=== PATIENT | female | born 1985 | race Caucasian/White ===

== ENCOUNTER 2025-04-01 15:52 | Emergency (ER) | payer BC, SELFPAY ==
[2025-04-01] VITALS (8 sets, daily range): BP systolic 96–182; BP diastolic 76–110; BMI 22.5
--- NOTE | 2025-04-01 16:23 | ED.GENMED ---
History of Present Illness
General
Chief Complaint: Anxiety
Source: patient and family
Time Seen by Provider: 04/01/25 16:07
History of Present Illness
History of Present Illness:
39-year-old female with no reported past medical history presenting to the emergency department for evaluation of what she states is anxiety over the last month plus, today symptoms seem much worse and persistent, unable to get the sensation of
anxiousness under control which is why she presented to the emergency department. Patient states that she has been pacing all day and tremulous. She was seen by her primary care doctor for this about 3 weeks ago and was offered medication for the
anxiety but she had refused at that time stating she felt she did not need anything medication rodriguez. She denies any SI, HI, hallucinations. No history of similar. When asked about alcohol history patient did seem evasive with this questioning,
family member present states patient does drink a little bit more than what she let onto (patient admitted to drinking 2 times a week but notes she does drink heavily when she does drink alcohol). Patient states she had at least 12 beers yesterday
while watching the football games. She does note that her anxiety symptoms seem to be worse after drinking. She does admit to trying to self medicate with alcohol. She is also denying any fevers, chills, rigors, headache, visual disturbances,
focal weakness or numbness, chest pain, SOB, nausea/vomiting or any other concerns.
Past History
Past History
ED Past Medical History: None
ED Past Surgical History:
Social History
Tobacco: Non-smoker
Alcohol: Binge drinker
Drug: None
Personal:
Living: with family
Review of Systems
Review of Systems
All Other Systems: ROS reviewed and negative except as documented in HPI and ROS
Phy Exam
Physical Exam
Physical Exam:
GENERAL: Alert , unable to sit still, pacing
HEAD: Normocephalic atraumatic
EYE: clear conjunctiva
NECK: Supple
ENT: o/p clr, mmm.
CARDIAC: Tachycardic rate, regular rhythm
LUNGS: Clear breath sounds bilaterally, no acute respiratory distress, no wheezes/rales/rhonchi
ABDOMEN: Soft, without focal tenderness, no r/g, no cvat
NEUROLOGICAL: Alert and oriented, tremors most pronounced with arms extended
SKIN: Warm and dry, skin intact.
MUSCULOSKELETAL: No edema, well perfused.
PSYCH: Anxious affect
Scores
Heart Failure Risk
Heart Failure Risk Score: Not Applicable
Heart Score for Chest Pain Patients
STEMI patient?: Not applicable
Withdrawal Assessment of Alcohol
Withdrawal Assessment Completed?: Yes
Nausea and Vomiting: No nausea and no vomiting
Tactile Disturbances: Very mild itching, pins and needles, burning or numbness
Tremor: Moderate, with patient's arms extended
Auditory Disturbances: Not present
Paroxysmal Sweats: No sweat visible
Visual Disturbances: Not present
Anxiety: Moderately anxious, or guarded, so anxiety is inferred
Headache, Fullness in Head: Not present
Agitation: Moderately fidgety and restless
Orientation and clouding of sensorium: Oriented and can do serial additions
Total CIWA Score: 13
Alcohol Withdrawal Medication Recommendation: Equal to MSAS Score 5-7. Lorazepam 1mg IV or PO NOW & re-assess q2hrs
Course
Orders/Labs/Results
Orders:
Orders
04/01/25 15:57
Crisis Consult Urgent
Reason for Consult: anxiety
04/01/25 16:19
Midazolam HCl [Versed] 5 mg IV NOW STA
04/01/25 16:20
Test Result ONCE
04/01/25 16:21
Electrocardiogram (*1) Urgent
Reason for Study: Bradycardia / Tachycardia
EKG- Treatment ONCE
04/01/25 16:31
Alcohol Urgent
Complete Blood Count/With Diff Urgent
Comprehensive Metabolic Panel Urgent
HCG, Serum Qualitative Screen Urgent
TSH Reflex To Free T4 Urgent
diazePAM [Valium Injection] 5 mg IV NOW STA
04/01/25 16:32
diazePAM [Valium Injection] 10 mg IV NOW STA
04/01/25 16:54
Midazolam HCl [Versed] 5 mg IV NOW STA
Abnormal Lab Results
04/01/25
16:31
RBC 4.05 L 10^6/uL
(4.20-5.40)
Hct 36.3 L %
(37.0-47.0)
Absolute Neuts (auto) 6.6 H 10^3/uL
(1.4-6.5)
Absolute Lymphs (auto) 1.0 L 10^3/uL
(1.2-3.4)
Neutrophils % 79.8 H %
(42.2-75.2)
Lymphocytes % 12.5 L %
(20.5-51.1)
Sodium 127 L mmol/L
(135-145)
Chloride 91 L mmol/L
(98-107)
Carbon Dioxide 17 L mmol/L
(22-30)
BUN 6 L mg/dl
(7-17)
Creatinine 0.5 L mg/dL
(0.6-1.0)
Total Bilirubin 1.5 H mg/dl
(0.2-1.3)
AST 214 H U/L
(14-36)
ALT 130 H U/L
(0-35)
Albumin 5.4 H g/dl
(3.5-5.0)
04/01/25 16:31
04/01/25 16:31
Vital Signs
Initial and Last Documented VS:
Initial Vital Signs
Temp Pulse Resp BP Pulse Ox
97.2 F 148 18 182/110 97
04/01/25 15:54 04/01/25 15:54 04/01/25 15:54 04/01/25 15:54 04/01/25 15:54
Last Documented Vital Signs
Temp Pulse Resp BP Pulse Ox
97.2 F 88 17 120/88 98
04/01/25 15:54 04/01/25 20:00 04/01/25 20:00 04/01/25 20:00 04/01/25 19:15
MDM/Problems Addressed
Differential Diagnosis Includes:
ETOH abuse/withdrawal
Dehydration
Electrolyte Imbalance
Anxiety/Panic Disorder
Cardiac Arrhythmia
Thyroid Disorder
MDM/Problems Addressed:
39-year-old female presenting to the emergency department for evaluation of what she reports is anxiety. Throughout the encounter patient seemed to be downplaying her alcohol use noting that she will drink twice a week but stating that she will
often drink to counteract her anxiety but usually feels worse after drinking alcohol. Yesterday had 12+ beers and symptoms started upon awakening this morning. I do have a high degree of suspicion for alcohol abuse/withdrawal as her presenting
complication. There could and is likely a component of anxiety/panic disorder playing a role as well. I did offer patient [facility] consultation however she initially declines this. A crisis consultation was ordered in triage however given patient
is currently not medically stable enough to be dispositioned to crisis will keep patient in the ER and work her up for acute alcohol withdrawal with labs and treat with 5 mg Versed IV. Patient CIWA score of 13 and M panchito score of 5-7.
*Pulse Oximetry
SaO2: 97
Oxygen Mode of Delivery: Room air
Patient hypoxic: no
*It Sales Executive Interpretation
Rate: tachycardiac
Heart Rate: 137
Rhythm: sinus
*Critical Care Note
Total Time (30-74mins, 75-104mins- exclusive of procedures): 30
comment:
Critical care statement: A total of 30 minutes of critical care time was provided for this patient. This includes management of unstable vital signs, evaluation of the patient at bedside, reviewing the patient's pertinent medical records, discussion
with consultants, review of old EKGs and review of pertinent medical records. This time with separate from time utilized to perform the aforementioned documented procedures
Comment
Comment:
Initially I did order Versed 5 mg IV and change this to Valium 5 mg IV, nursing staff had already drawn up the Versed and provided this. After speaking with attending about case we decided to give 10mg valium IV. Nursing then saw that I have
changed the 5 mg of the Valium to 10 mg but because the order the first that was already processed requested that an additional 5 mg reordered, they had verbalized that they wanted to give an additional 5 of Versed, I had heard 5 of Valium and
stated it was okay to give the additional 5 mg. Patient received an additional 5 mg of Versed instead of the Valium making the patient having received a total of 10 mg of Versed. Patient was hooked up to the quality assurance monitor body and continuously
observed, maintaining her oxygen saturations without any problems. She does note feeling much less anxious following these medications. Patient will be observed in the ER for an extended period of time to ensure no sedating effects from the
medications given.
Patient Management
Social determinants of health affecting care: Living situation and Strong social support
Escalation/DeEscalation of care consider admission/obs:
After a few hours patient was more open to speaking with [facility]. She did not wish to go to inpatient facility but was amenable to outpatient based resources. Patient was observed continuously, no evidence for hypoxia, remained awake alert and
oriented x 3. Her vital signs have all significantly improved and she felt she wanted to be discharged home and would follow-up with her primary care provider as well as the outpatient resources provided to her. I did give the patient a short-term
course of Ativan to be used as needed for alcohol withdrawal. We discussed avoidance of alcohol. Patient and both expressed understanding and are aware of return precautions.
ED Attending Note
-
Portions of this chart may have been created with voice recognition software.� Occasional wrong word or��sound alike� substitutions may have occurred due to the inherent limitations of voice recognition software.
Discharge Plan
Departure
Patient Disposition: Home (Routine Discharge)
Date of Disposition: 04/01/25
Time of Disposition: 20:08
Patient with high blood pressure during this ER visit?: No
Discharge Problem:
Alcohol abuse with withdrawal
Instructions: Alcohol use disorder - ED (DC)
Prescriptions:
New
lorazepam [Ativan] 1 mg tablet
1 mg PO BID PRN (Reason: alcohol withdrawal) Qty: 6 0RF
Referrals:
Tom Wei CRNP [Family Provider, General]
Interventions
Interventions:
*Risk Screen - Suicide Last Done: 04/01/25 15:54
*General Assessment Last Done: 04/01/25 15:54
*Neglect/Abuse Screening Last Done: 04/01/25 15:54
*ED- Fall Risk Assessment Last Done: 04/01/25 16:03
*ED COVID-19 Vaccine History Last Done: 04/01/25 16:03
*Nursing Disposition Last Done: 04/01/25 20:23
ED-Psychological Assessment Last Done: 04/01/25 16:03
Discharge Date and Time
Discharge Date/Time: 04/01/25 20:24
Print Language: BERMUDIAN
[2025-04-01] MEDS: VERSED 5 MG IV ×2 (16:40→16:57)
[2025-04-01 16:51] LABS: Hematocrit 36.3 % (37.0-47.0); Hemoglobin 12.5 g/dL (12.0-16.0); Mean Corp Hgb Conc. 34.4 g/dL (33.0-37.0); Mean Corpuscular Volume 89.6 fL (81.0-99.0); Nucleated Red Blood Cells % 0 %; Platelet Count 226 10^3/uL (130-400); Red Cell Dist. Width 13.9 % (11.5-14.5)
[2025-04-01 17:00] LABS: HCG, Serum Qualitative Screen Negative
[2025-04-01 17:10] LABS: ALT (SGPT) 130 U/L (0-35); AST (SGOT) 214 U/L (14-36); Albumin 5.4 g/dl (3.5-5.0); Alkaline Phosphatase 78 U/L (38-126); Blood Urea Nitrogen 6 mg/dl (7-17); Calcium 9.4 mg/dl (8.4-10.2); Carbon Dioxide 17 mmol/L (22-30); Chloride 91 mmol/L (98-107); Glucose 92 mg/dl (70-99); Potassium 4.2 mmol/L (3.5-5.1); Sodium 127 mmol/L (135-145); Total Protein 8.1 g/dl (6.3-8.2); eGFR > 60.00
== END 2025-04-01 20:24 | disposition home or self-care (01) ==
LOC: EMR 15:52
PROVIDERS: Physician Assistant Medical; EMERGENCY PHYSICIAN Emergency Medicine; FAMILY PHYSICIAN Nurse Practitioner Family
DX: F10.139 Alcohol abuse with withdrawal, unspecified (principal)
CPT/HCPCS: 99291; 96374; 96376; 80053; 82077; 84443; 84703; 85025; 93005

== ENCOUNTER → 2025-04-16 18:35 | Outpatient (REF) | payer BC, SELFPAY | LOC: WDC 18:35 | PROVIDERS: ATTENDING PHYSICIAN Nurse Practitioner Family | DX: Z12.31 Encounter for screening mammogram for malignant neoplasm of breast (principal) | CPT/HCPCS: 77063; 77067 ==

== ENCOUNTER → 2025-04-29 09:16 | Outpatient (REF) | payer BC, SELFPAY | LOC: WDC 09:16 | PROVIDERS: ATTENDING PHYSICIAN Nurse Practitioner Family | DX: R92.8 Other abnormal and inconclusive findings on diagnostic imaging of breast (principal) | CPT/HCPCS: 76642 ==

== ENCOUNTER → 2025-05-06 07:12 | Outpatient (REF) | payer BC, SELFPAY | LOC: WDC 07:12 | PROVIDERS: ATTENDING PHYSICIAN Nurse Practitioner Family | DX: R92.1 Mammographic calcification found on diagnostic imaging of breast (principal) | CPT/HCPCS: 19081; 76098; A4648 ==

== ENCOUNTER 2025-05-08 06:12 | Day surgery (SDC) | payer BC, SELFPAY | END 2025-05-08 12:21 | disposition home or self-care (01) | LOC: GI 06:12 | PROVIDERS: ATTENDING PHYSICIAN Internal Medicine | DX: Z12.11 Encounter for screening for malignant neoplasm of colon (principal); Z80.0 Family history of malignant neoplasm of digestive organs; K64.8 Other hemorrhoids | CPT/HCPCS: G0105 ==